=== PATIENT | female | born 1955 | race Caucasian/White ===

== ENCOUNTER 2025-03-24 10:58 | Outpatient (REF) | payer MEDICARE, SELFPAY ==
[2025-03-24 11:57] LABS: MANUAL DIFF FLAG NO
[2025-03-24 13:03] LABS: Hematocrit 39.0 % (37.0-47.0); Hemoglobin 13.5 g/dl (12.0-16.0); Imm Gran Abs Auto 0.02 X10*3/uL (0.00-0.03); Imm Gran Pct Auto 0.3 % (0.0-0.4); Lymphocytes Absolute Auto 1.7 X10*3/uL (1.2-4.9); Mean Corpuscular HGB Conc 34.6 g/dl (31.0-35.0); Mean Corpuscular Hemoglobin 29.9 pg (27.0-33.0); Mean Corpuscular Volume 86.3 fL (80.0-98.0); NRBC Abs Auto 0.000 X10*3/uL (0.0-0.012); NRBC Pct Auto 0.0 /100WBC (0.0-0.2); Platelet Count 286 X10*3/uL (160-400); Red Blood Count 4.52 X10*6/uL (4.20-5.50); White Blood Count 6.5 X10*3/uL (4.8-10.8)
[2025-03-24 13:41] LABS: Alanine Aminotransferase 23 U/L (0-31); Albumin Level 4.5 g/dL (3.5-5.0); Alkaline Phosphatase 90 U/L (39-117); Anion Gap 11 (12-20); Aspartate Amino Transferase 31 U/L (5-31); Blood Urea Nitrogen 15 mg/dL (9-16); Calcium 9.0 mg/dL (8.4-10.2); Carbon Dioxide 29 mmol/L (22-29); Chloride 110 mmol/L (96-108); Estimated Glomerular Filt Rate > 60; Potassium 4.6 mmol/L (3.3-5.1); Sodium 145 mmol/L (135-145); Total Protein 6.9 g/dL (6.5-8.0)
== END 2025-03-24 10:59 | disposition home or self-care (01) ==
LOC: HO.LAB 10:58
PROVIDERS: PCP Internal Medicine; Visit Provider Nurse Practitioner
DX: Z01.818 Encounter for other preprocedural examination (principal); D12.6 Benign neoplasm of colon, unspecified
CPT/HCPCS: 36415; 80053; 85025; 99202

== ENCOUNTER 2025-03-24 10:58 | Outpatient (AMB) | payer MEDICARE, BC, SELFPAY ==
--- NOTE | 2025-03-24 11:09 | A.OFFVIS_ITS ---
Vital Signs 03/24/25 11:10 Height 5 ft 3 in Weight 139 lb 12.369 oz BMI 24.8 BP 130/81 Blood Pressure Location Lt brachial Position Sitting Pulse 73 Intake Visit Reasons: Hx polyps,repeat [place] Intake Note: New patient in office today for colonoscopy screening. CC: Patient reports diagnosis of IBS with constipation alternating with diarrhea. [employer] Physician Required: No Accompanied by: Self / Same As Patient Allergies Penicillins Allergy (Unknown, Verified 03/24/25 11:13) Unknown opioids Adverse Reaction (Severe, Uncoded 03/24/25 11:13) Nausea and Vomiting HPI HPI Hx polyps,repeat [place]: Details: 69-year-old female here for preprocedural meeting to discuss a screening colonoscopy. She is referred by a private practice provider in [facility]. PMX Hypertension - pt denies High cholesterol Interstitial cystitis Depression/Anxiety History of colon polyps History of distal radius/ulnar fracture IBS-M * SURGICAL HISTORY Hysterectomy Cervical diskectomy Left shoulder rotator cuff repair Colonoscopy-2016 Zerogian=polyps Tonsillectomy * ALLERGIES Penicillin morphine N/V * [facility]: None TODAY'S VISIT Colonoscopy-2017 Zerogian=polyps She had no trouble with her past colonoscopy with the that the prep or the procedure. She has IBS-M but controls it well with magnesium. There are no upper GI problems. There are no prior problems with anesthesia or sedation. She denies any cardiac or respiratory problems. There are no infectious disease problems. She has a history of a TA in 2017. [facility] Medical History (Updated 03/24/25 @ 11:20 by ROSELYN Ledezma) Fracture of distal radius and ulna Surgical History (Updated 03/24/25 @ 11:37 by ROSELYN Ledezma) Hx of tonsillectomy H/O colonoscopy S/P left rotator cuff repair H/O cervical discectomy History of hysterectomy Family History Father Multiple myeloma Social History (Updated 03/24/25 @ 11:15 by INGA Fowler) Alcohol intake: never Patient Tobacco Use Status: Never used Tobacco Use of substances other than those prescribed or required for medical reasons: No Review of Systems Const Denies fatigue, Denies fever(s), Denies night sweats, Denies poor appetite and Denies weight loss ENT Reports Normal hearing present, Denies dental pain, Denies dysphagia, Denies hearing loss, Denies mouth pain, Denies odynophagia, Denies throat swelling, Denies tongue swelling and Reports other (Dentition adequate) Card Reports no additional complaints Resp Reports no additional complaints GI Details: Denies abdominal pain, Denies melena, Denies bloating, Denies hematochezia, Reports constipation, Denies GI cramping, Denies dysphagia, Denies excessive flatus, Denies early satiety, Denies heartburn, Denies diarrhea, Reports loose stools, Denies nausea, Denies odynophagia, Denies vomiting and Denies hematemesis Skin/Breast Denies pruritus, Denies lesions, Denies rash and Denies jaundice Neuro Reports Normal hearing present and Denies Abnormal speech present Endo Denies fatigue Aller/Immun Denies throat swelling and Denies tongue swelling Physical Exam Vital Signs: BMI result Body Mass Index 24.8 Const General: cooperative, no acute distress, well developed and well groomed Nutritional Appearance: average body habitus and well nourished Orientation/consciousness: oriented to person, oriented to place and oriented to time Limitations: No language barrier HEENT Head: Yes normocephalic and Yes atraumatic Eyes General: appearance normal, both eyes and all related structures Pupils: Equal, round and reactive pupils present Neck Neck: Yes normal visual inspection and Yes no lymphadenopathy Thyroid: Thyroid normal Resp Effort & Inspection: normal respiratory effort and able to speak in complete sentences Auscultation: clear to auscultation bilaterally Cardio Rate: regular rate Rhythm: regular rhythm Heart sounds: Normal, physiologic split S2 sound present Peripheral pulses: radial pulses present and posterior tibial pulses present GI Inspection: No distended, No Abdominal panniculus present and Yes striae Palpation (GI): Soft to palpation, nontender, no guarding, not rigid and No hepatosplenomegaly present Percussion: Yes normal to percussion Auscultation: normal bowel sounds Rectal Exam - Female: deferred Skin General skin exam: no rashes or lesions noted, turgor normal, skin not dry, no jaundice, No spider nevi and no striae Rashes: no rashes Nails: normal Neuro General: oriented to person, oriented to place and oriented to time Cranial nerves: Yes Equal, round and reactive pupils present and Yes Normal hearing present Speech: No Abnormal speech present Extrem General: Yes normal to inspection, No clubbing, No cyanosis and No edema Psych Appearance: grossly normal and well kempt Mental Status: mental status grossly normal Speech and movement: Normal speech and movement present Affect: normal affect Attitude: cooperative Thought process: Normal thought process present and not confabulating Thought content: Normal thought content present Insight: Good insight present (Psych) Judgement: Good judgement present (Psych) Assessment & Plan Assessment & Plan (1) Tubular adenoma of colon: Code(s): D12.6 - Benign neoplasm of colon, unspecified Category: Medical (2) Pre-op examination: Code(s): Z01.818 - Encounter for other preprocedural examination Category: Medical Plan Colonoscopy-2017 Zerogian=polyps She had no trouble with her past colonoscopy with the that the prep or the procedure. She has IBS-M but controls it well with magnesium. There are no upper GI problems. There are no prior problems with anesthesia or sedation. She denies any cardiac or respiratory problems. There are no infectious disease problems. She has a history of a TA in 2017. Orders: Orders Complete Blood Count Auto Diff Today Z01.818 - Encounter for other preprocedural examination Comprehensive Met. Panel Today Z01.818 - Encounter for other preprocedural examination Referrals GI Procedure Notification D12.6 - Benign neoplasm of colon, unspecified, Z01.818 - Encounter for other preprocedural examination Medications: New peg 3350-electrolytes 236-22.74-6.74 -5.86 gram (Golytely) until fecal effluent is clear; do not exceed a total volume of 2,000 mL 240 mL PO Q10M 4,000 mL 0RF 1 day Z12.11 - Encounter for screening for malignant neoplasm of colon bisacodyl (Dulcolax (bisacodyl)) 10 mg (2 x 5 mg) PO BEDTIME 4 tabs 0RF 2 days Coding Level of Care Code New Pt Level 3 (07785) Diagnoses Tubular adenoma of colon D12.6 Pre-op examination Z01.818
[2025-03-24 11:10] VITALS: BP 130/81; PULSE 73; BMI 24.8
--- OUTSIDE RECORDS SUMMARY | 2025-03-24 12:43 | XMS_ITS | Clinical Summary ---
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 Name Role Phone Unavailable Primary Care Provider Unavailabl e Social History Tobacco Use Types Packs/Day Years Used Date Smoking Tobacco: Never Assessed Comments Unknown Sex and Gender Information Value Date Recorded Sex Assigned at Not on file Legal Sex Female 9:09 AM EST Gender Identity Not on file Sexual Orientation Not on file Plan of Treatment Health Maintenance Due Date Last Done Comments DTaP,Tdap,and Td Vaccines (1 - Tdap) 1976 Pneumococcal Vaccine: 50+ Years (1 of 1 - PCV) 2007 Zoster Vaccines (1 of 2) 2007 Colorectal Cancer Screening: Colonoscopy 06/15/2022 Falls Risk Assessment 06/15/2022 Hepatitis C Screening 06/15/2022 Osteoporosis Screening (Bone Density Screening) 06/15/2022 Social Influencers of Health Screening 06/15/2022 Depression Screening 07/13/2024 COVID-19 Vaccine ( season) 2025 Influenza Vaccine (#1) 2025 Breast Cancer Screening 04/26/2026 04/26/20 24, 04/26/2023, 09/27/2021, Additional history exists RSV Immunization Adult Patients (1 - 1-dose 75+ series) 2032 HIB Vaccines Aged Out No longer eligi ble based on patient's age to complete this topic HPV Vaccines Aged Out No longer eligi ble based on patient's age to complete this topic Hepatitis A Vaccines Aged Out No long er eligible based on patient's age to complete this topic Hepatitis B Vaccines Aged Out No long er eligible based on patient's age to complete this topic IPV Vaccines Aged Out No longer eligi ble based on patient's age to complete this topic MMR Vaccines Aged Out No longer eligi ble based on patient's age to complete this topic Meningococcal ACWY Vaccine Aged Out N o longer eligible based on patient's age to complete this topic Meningococcal B Vaccine Aged Out No l onger eligible based on patient's age to complete this topic RSV Immunization Patients Under 20 months Aged Out No longer eligible based on patient's age to complete this topic Varicella Vaccines Aged Out No longer eligible based on patient's age to complete this topic Procedures Procedure Name Priority Date/Time Associated Diagnosis Comments [facility] SCREENING DIGITAL Routine 04/26/2024 10:56 AM EDT Encounter for screening mammogram for malignant neoplasm of breast from Last 3 Months or Most Recently Relevant to Health Maintenance Results * [facility] SCREENING DIGITAL (04/26/2024 10:56 AM EDT) Anatomical Region Laterality Modality Mammography 04/26/2024 10:2 0 AM EDT Narrative 04/26/2024 10:56 AM EDT [facility] Diagnostic Imaging Department [address] [place] [address] Patient: SERENA BETANCUR Afia /Age/Sex: 1955 - 68 - F Unit#: [id number] [facility]Ordering [facility] Ordering Physician: FELIBERTO WEBB MD Herrera Screening Digital - 04/26/24 - 1040 Report Status:Signed HISTORY: The patient is a 68-year-old female presenting for routine screening mammography. FINDINGS: Full-field digital mammography of the breasts bilaterally consisting of tomosynthesis in MLO and CC projection is performed in the [employer] 2000-D unit. Computer aided detection utilizing the iCAD system was utilized. The breasts are again seen to be composed of a combination of fatty and fibroglandular elements (scattered areas of fibroglandular density, category B density as calculated with Axelapara software), as also demonstrated on prior studies most recently 04/24/2023 most remotely 05/01/2017. There is no cluster of microcalcifications, mass, or area of architectural distortion. There is no skin thickening or nipple retraction. IMPRESSION: No mammographic evidence of malignancy. A negative mammogram in the presence of a clinically suspicious palpable abnormality does not preclude the possibility of malignancy or alter the indications for biopsy. BIRADS Code Class 1: Negative PQRI CPT II 3341F Code 29047, 91908 PQRI 225 CPT II 7025F Dictating Physician: JESSY VILLASENOR MD Electronically Signed by: JESSY VILLASENOR MD Dic Date/Time: 04/26/24 105 Sign date/Time: 04/26/24 1056 Procedure Note Jessy Villasenor MD - 05/10/2024 [facility] Diagnostic Imaging Department [address] [place] [address] Patient: YUELumaSERENA Nielsen./Age/Sex: 1955 - 68 - F Unit#: [id number] Location/Status: [facility] CLI Mnemonic/Ordering Site: [facility] Ordering Physician: FELIBERTO WEBB MD Herrera Screening Digital - 04/26/24 - 1040 Report Status:Signed HISTORY: The patient is a 68-year-old female presenting for routinescreening mammography. FINDINGS: Full-field digital mammography of the breasts bilaterallyconsisting of tomosynthesis in MLO and CC projection is performed in the [employer] 2000-D unit. Computer aided detection utilizing the iCAD system wasutilized. The breasts are again seen to be composed of a combination of fatty and fibroglandular elements (scattered areas of fibroglandular density,category B density as calculated with Axelapara software), as also demonstratedon prior studies most recently 04/24/2023 most remotely 05/01/2017. There isno cluster of microcalcifications, mass, or area of architectural distortion.There is no skin thickening or nipple retraction. IMPRESSION: No mammographic evidence of malignancy. A negative mammogram in the presence of a clinically suspicious palpable abnormality does not preclude the possibility of malignancy or alter the indications for biopsy. BIRADS Code Class 1: Negative PQRI CPT II 3341F Code 01339, 67672 PQRI 225 CPT II 7025F Dictating Physician: JESSY VILLASENOR MD Electronically Signed by: JESSY VILLASENOR MD Dic Date/Time: 04/26/24 1053 Sign date/Time: 04/26/24 1056 Feliberto Webb MD IMG BI PROCEDURES Final Result from Last 3 Months or Most Recently Relevant to Health Maintenance
== END 2025-03-24 11:35 | disposition home or self-care (01) ==
LOC: HO.HGI 10:58
PROVIDERS: PCP Internal Medicine; Visit Provider Nurse Practitioner
DX: Z01.818 Encounter for other preprocedural examination (principal); Z12.11 Encounter for screening for malignant neoplasm of colon; Z86.0100 Personal history of colon polyps, unspecified; K58.2 Mixed irritable bowel syndrome
CPT/HCPCS: 99203